=== PATIENT | female | born 1990 | race African-American/Black ===

== ENCOUNTER 2016-05-25 11:12 | Emergency (ER) ==
[2016-05-25 12:16] VITALS: BP 129/73
[2016-05-25 12:55] LABS: MANUAL DIFF NEEDED? NO
[2016-05-25 13:07] LABS: BASO% 0.2 % (0.0-0.8); EOS# 0.01 X1000 (0.0-0.7); EOS% 0.2 % (0.0-10.0); HEMATOCRIT 38.8 % (37.0-47.0); LYMPH# 2.53 X1000 (1.2-3.4); LYMPH% 47.3 % (20.5-51.1); MCHC 33.5 g/dL (33-37); MCV 95.6 FL (81-99); MONO# 0.43 X1000 (0.11-0.59); MPV 9.9 FL (7.4-10.4); NEUT% 44.3 % (42.2-75.2); PLT 256 X1000 (130-400); RBC 4.06 XMIL (4.2-5.4)
[2016-05-25 13:20] LABS: AGAP 12; ALBUMIN 4.3 g/dL (3.5-5.0); ALKALINE PHOSPHATASE 90 U/L (32-104); AMYLASE 42 U/L (20-200); BUN 11 mg/dL (8-22); CALCIUM 9.2 mg/dL (8.8-10.2); CHLORIDE 99 mmol/L (98-107); COSMO 268; GOT 15 U/L (10-30); GPT 13 U/L (10-36); LIPASE 19 U/L (13-60); POTASSIUM 3.6 mmol/L (3.5-5.1); SODIUM 135 mmol/L (136-145); TCO2 24 mmol/L (25-35); TOTAL BILIRUBIN 0.83 mg/dL (0.20-1.00); TOTAL PROTEIN 8.1 g/dL (6.3-8.3)
[2016-05-25 13:24] LABS: URINE MICRO REVIEW NEEDED? NO; URINE SOURCE CLEAN CATCH
[2016-05-25 13:28] LABS: BILIRUBIN URINE NEGATIVE (NEGATIVE); BLOOD URINE NEGATIVE (NEGATIVE); COLOR YELLOW; GLUCOSE URINE NEGATIVE (NEGATIVE); LEUKOCYTES URINE TRACE (NEGATIVE); NITRITE URINE NEGATIVE (NEGATIVE); PROTEIN URINE 30 mg/dL (NEGATIVE); SP GRAVITY URINE 1.029; TURBIDITY URINE CLEAR (CLEAR); UROBILINOGEN URINE 2 mg/dL (NORMAL)
[2016-05-25 13:30] LABS: UR EPITHELIAL CELLS <10 /HPF (<10); URINE BACTERIA 1+ /HPF; URINE CULTURE NEEDED? YES; URINE RBC <10 /HPF (<10)
== END 2016-05-25 17:02 | disposition left against medical advice (07) ==
LOC: ED 11:12
DX: R11.2 Nausea with vomiting, unspecified (principal); R51 Headache; R22.1 Localized swelling, mass and lump, neck
CPT/HCPCS: 36415; 80053; 81001; 82150; 83690; 85025; 87088; 99282

== ENCOUNTER 2016-05-27 11:16 | Emergency (ER) ==
[2016-05-27 11:27] VITALS: BP 116/60
[2016-05-27 11:37] LABS: URINE CULTURE PL NEEDED? NO; URINE SOURCE CLEAN CATCH
[2016-05-27 11:41] LABS: BILIRUBIN URINE NEGATIVE (NEGATIVE); BLOOD URINE NEGATIVE (NEGATIVE); CLARITY SL. CLOUDY (CLEAR); COLOR AMBER; GLUCOSE URINE NEGATIVE (NEGATIVE); LEUKOCYTES URINE 1+ (NEGATIVE); NITRITE URINE NEGATIVE (NEGATIVE); PROTEIN URINE 1+(30 mg/dL) mg/dL (NEGATIVE); UROBILINOGEN URINE 4+(12 mg/dL)
--- NOTE | 2016-05-27 11:58 | PROVIDER DOCUMENTATION ---
HPI-General Adult <Charline Barrow - Last Filed: 05/27/16 14:20> - General Source: patient - History of Present Illness -Gen Adult Nature of Presenting Problems: Reports to er with cc of sorethroat x 4 days with nausea and vomiting x 2 days. Reports left salivary glands swollen. Has had previous right sided salivary gland surgery. Also reports bodyaches. Location of Pain/Injury: reports: generalized Quality of Pain: reports: aching Severity: reports: moderate Onset/Duration: reports: 4 days ago Timing: reports: still present Associated Symptoms: reports: EENT symptoms, muscle aches, nausea, vomiting Similar Symptoms Previously?: No Recently seen or treated by another doctor?: No <Jonh Giron - Last Filed: 05/27/16 14:22> - General Chief Complaint: Nausea/Vomiting Stated Complaint: SORE THROAT/VOMITING Time Seen by Provider: 05/27/16 11:25 Allergies/Adverse Reactions: Patient Allergies Allergy/AdvReac Type Severity Reaction Status Date / Time No Known Allergies Allergy Verified 04/13/16 19:22 Review of Systems - Adult - REVIEW OF SYSTEMS - ADULT Constitutional: denies: chills, fever, fatique Eyes: reports: no symptoms reported Ears, Nose, Mouth & Throat: reports: see HPI, throat pain. denies: ear pain, sinus problem Cardiovascular: reports: no symptoms reported Respiratory: denies: cough, shortness of breath, wheezing Gastrointestinal: reports: nausea, vomiting. denies: abdominal pain, diarrhea Genitourinary: reports: no symptoms reported Musculoskeletal: reports: muscle aches. denies: frequent leg cramps, joint pain , joint swelling Integumentary: reports: no symptoms reported Neurological: reports: no symptoms reported Psychiatric: reports: no symptoms reported Endocrine: reports: no symptoms reported Hematologic/Lymphatic: reports: no symptoms reported Allergic/Immunologic: reports: no symptoms reported All Other Systems: Reviewed and Negative <Jonh Giron - Last Filed: 05/27/16 14:22> Past History - Adult - PAST MEDICAL HISTORY-ADULT Review of Records: reports: Nursing Assessment Review Major Childhood Illnesses: reports: denies history Cardiovascular: reports: denies history Musculoskeletal: reports: neck/back injury Neurological: reports: headaches/migraines Psychiatric: reports: other (panic attacks) - PRIOR SURGERIES/PROCEDURES Surgical/Procedure History: reports: back/neck (neck) - IMMUNIZATION STATUS Childhood Immunizations: See Nurse Assessment Flu Vaccine: See Nurse Assessment - FAMILY HISTORY Family History: reviewed, not pertinent - SOCIAL HISTORY Smoking: cigarettes, less than 1 pack/day Provider spent 3-5 mins advising pt. on dangers of tobacco.: Discussed manners to quit use, and f/u contacts for add'l counseling. Substance Use: none/never <Jonh Giron - Last Filed: 05/27/16 14:22> Physical Exam-General - PHYSICAL EXAM-ADULT Initial Vital Signs Reviewed: Yes - CONSTITUTIONAL General Appearance: appears well, alert, no apparent distress - EYES Eyes: PERRL/EOMI, pink conjunctivae - HEAD, EARS, NOSE, MOUTH & THROAT HENMT: normocephalic/atraumatic, moist mucous membranes, normal ENT inspection, TMs normal, pharyngeal erythema - NECK Neck: full range of motion, lymphadenopathy (left side 1cm raised), other ( healed surgical scar right side neck and throat) - RESPIRATORY Respiratory: chest non-tender, lungs clear, normal breath sounds - CARDIOVASCULAR Cardiovascular: normal peripheral pulses, regular rate, rhythm, no edema - GASTROINTESTINAL (ABDOMEN) Abdominal Exam: normal bowel sounds, non tender, soft - LYMPHATIC Lymphatic: no adenopathy - MUSCULOSKELETAL Back Exam: normal inspection, no CVA tenderness, no vertebral tenderness Extremity: normal range of motion, non-tender, normal gait - SKIN Integumentary: normal color, normal turgor, warm/dry - NEUROLOGIC Neurologic: grossly normal, no motor/sensory deficits - PSYCHIATRIC Psych/Mental Status: normal mood/affect, normal thought content, normal thought process, oriented x 3 <Jonh Giorn - Last Filed: 05/27/16 14:22> Progress - PLAN OF CARE/RESULTS Progress/Plan/Lab Results: Orders Category Date Time Status TEST-URINE [PREG] Stat Lab 05/27/16 11:[address] W/POSS RFLX CULT [URINALYSIS] Stat Lab 05/27/16 11:31 Results Vital Signs - 24 hr 05/27/16 11:25 Temperature 97.2 F L Pulse Rate 57 L Respiratory 18 Rate Blood Pressure 116/60 O2 Sat by Pulse 97 Oximetry Laboratory Tests 05/27/16 05/27/16 11:31 11:31 Urine Source CLEAN CATCH Urine Color RAJIV Urine Clarity SL. CLOUDY A Urine pH 6.0 Ur Specific [place] 1.020 Urine Protein 1+(30 mg/dL) A Urine Ketones 1+(Small) A Urine Blood NEGATIVE Urine Nitrite NEGATIVE Urine Bilirubin NEGATIVE Urine Urobilinogen 4+(12 mg/dL) Urine Microscopic RBC <10 Urine WBC 1+ A Urine Microscopic WBC 10-20 A Ur Epithelial Cells <10 Urine Glucose NEGATIVE Urine Test NEGATIVE Laboratory Tests 05/27/16 05/27/16 05/27/16 11:31 11:31 13:35 Urine Source CLEAN CATCH Urine Color RAJIV Urine Clarity SL. CLOUDY A Urine pH 6.0 Ur Specific [place] 1.020 Urine Protein 1+(30 mg/dL) A Urine Ketones 1+(Small) A Urine Blood NEGATIVE Urine Nitrite NEGATIVE Urine Bilirubin NEGATIVE Urine Urobilinogen 4+(12 mg/dL) Urine Microscopic RBC <10 Urine WBC 1+ A Urine Microscopic WBC 10-20 A Ur Epithelial Cells <10 Urine Glucose NEGATIVE Urine Test NEGATIVE Influenza A (Rapid) Influenza B (Rapid) Group A Strep Rapid NEGATIVE 05/27/16 13:35 Urine Source Urine Color Urine Clarity Urine pH Ur Specific [place] Urine Protein Urine Ketones Urine Blood Urine Nitrite Urine Bilirubin Urine Urobilinogen Urine Microscopic RBC Urine WBC Urine Microscopic WBC Ur Epithelial Cells Urine Glucose Urine Test Influenza A (Rapid) NEGATIVE Influenza B (Rapid) NEGATIVE Group A Strep Rapid <MackJonh - Last Filed: 05/27/16 14:22> Departure - Departure Time of Disposition Order: 14:20 <Charline Barrow - Last Filed: 05/27/16 14:20> - Departure Time of Disposition Order: 12:10 Certified Medical Emergency: Emergent <MackJonh - Last Filed: 05/27/16 14:22> - Departure DIAGNOSIS: Influenza-like illness UTI (urinary tract infection) Qualifiers: Urinary tract infection type: site unspecified Hematuria presence: without hematuria Qualified Code(s): N39.0 - Urinary tract infection, site not specified Pharyngitis Qualifiers: Pharyngitis/tonsillitis etiology: unspecified etiology Qualified Code(s): J02.9 - Acute pharyngitis, unspecified Disposition: HOME 01 Condition: Stable Additional Instructions: ED Follow Up Instructions: You have been treated by a care provider in the Emergency Department. These instructions are being provided to you so you can have an understanding of how to care for yourself upon discharge. Upon discharge from the Emergency Department, you are responsible for making arrangements for follow-up care by a physician of your choice. Take all prescribed medications as directed. Return to the Emergency Department immediately for any new or worsening symptoms. You may call the Physician Referral phone number at [phone] to obtain a list of Physicians who are taking new patients. Prescriptions: Cephalexin [Keflex] 500 mg PO BID #21 capsule Promethazine [Phenergan] 25 mg PO Q6H PRN PRN #20 tablet PRN Reason: Nausea And Vomiting Referrals: Lyle Matthews MD [STAFF PHYSICIAN] - None,PCP [Primary Care Provider] - Forms: Return to School/Parent Work Instructions: Urinary Tract Infection, [id number], Cephalexin tablets or capsules, Pharyngitis, [id number] Attestation - Scribe Verification/Attestation Scribe:: Jonh Giron Acting as Scribe for:: Charline Barrow Scribe documention review:: This chart was documented by a scribe and accurately reflects the service the provider performed and the decisions made by the provider. <Jonh Giron - Last Filed: 05/27/16 14:22> Physician Attestation
[2016-05-27 11:59] LABS: URINE EPITHELIAL CELLS <10 /HPF (<10); URINE RBC <10 /HPF (<10)
[2016-05-27] MEDS ORDERED: DECADRON IM ONE (14:24)
== END 2016-05-27 14:57 | disposition home or self-care (01) ==
LOC: P.ED 11:16
DX: N39.0 Urinary tract infection, site not specified (principal); J11.1 Influenza due to unidentified influenza virus with other respiratory manifestations; J02.9 Acute pharyngitis, unspecified; R11.2 Nausea with vomiting, unspecified; M79.1 Myalgia; R59.0 Localized enlarged lymph nodes; F17.210 Nicotine dependence, cigarettes, uncomplicated; Z71.6 Tobacco abuse counseling
CPT/HCPCS: 81001; 81025; 87081; 87430; 87804; 96372; J1100

== ENCOUNTER 2016-07-16 15:48 | Emergency (ER) | payer OTHER ==
[2016-07-16] MEDS ORDERED: NS 1,000 ML IV ONE (16:22)
--- NOTE | 2016-07-16 16:31 | PROVIDER DOCUMENTATION ---
HPI-Abdominal Pain/GI Problem - General Chief Complaint: Abdominal Pain Stated Complaint: HEADACHE/VOMITING/ABD PAIN Time Seen by Provider: 07/16/16 16:05 Source: patient Allergies/Adverse Reactions: Patient Allergies Allergy/AdvReac Type Severity Reaction Status Date / Time No Known Allergies Allergy Verified 07/16/16 16:27 Home Medications: Home Medication List Medication Instructions Recorded Confirmed Last Taken Type Doxycycline 100 mg PO BID #13 capsule 07/16/16 Unknown Rx Metronidazole [Flagyl] 500 mg PO BID #13 tablet 07/16/16 Unknown Rx - History of Present Illness-ABD Nature of Presenting Problems: 26 year old AAF presents with 2 complaints. 1. pt reports abdominal pain for 3-4 days, mid lower quadrant, constant, dull in nature, exacerbated with movement, ambulation. associated urinary frequency and nausea without vomiting. pt reports last BM this morning, normal. denies vaginal dc, pain with intercourse. last intercourse, 6 days ago, unprotected. pt reports her menstrual periods are irregular since the depo injection worse off several months ago. pt reports she is currently spotting. 2. pt reports a headache, onset this afternoon when she got off work. pt reports she has headaches on a daily basis, worse today. pain is always in the bilateral temples, non-radiating, dull, constant with associated nausea, without vomiting, positive for photophobia. pt reports she does not have much of an appetite in the last 4 days, denies fever, diarrhea. Abdominal Pain Onset Location: reports: suprapubic Pain Radiation: reports: no radiation Quality of Pain: reports: aching, dull Severity in ED: reports: mild Onset/Duration: reports: 3 days ago, 4 days ago Timing: reports: still present, constant, getting worse. denies: improving Activities at Onset: reports: none. denies: light activity, moderate activity, vigorous activity, recent emotional stress, recent physical stress, recent trauma history, possible bad food, cold exposure, eating, out of country travel , rest, sleep, sexual activity, other Modifying Factors: improves with: nothing, analgesics (pt reports taking tylenol without relief.) Associated Symptoms: reports: genitourinary problems (urinary frequency), loss of appetite, nausea. denies: back/neck pain, constipation, diarrhea, fever/ chills, vomiting, weakness, trouble walking Last BM: this morning Dark Stools Present?: reports: none noticed. denies: maroon, black, tarry, bright red blood Rectal Bleeding: reports: none. denies: bleeding without stool, bright red blood on paper, blood mixed with stool, blood streaks on stool, bloody diarrhea # of Diarrhea Episodes: 0 Rectal Pain: reports: none # of Vomiting Episodes: 0 Emesis Description: reports: none Bruising or Bleeding Gums?: No Similar Symptoms Previously?: No Recently seen or treated by another doctor?: No Review of Systems - Adult - REVIEW OF SYSTEMS - ADULT Constitutional: reports: no symptoms reported. denies: chills, fever, fatique Eyes: reports: no symptoms reported. denies: discharge, blurred vision, double vision, redness Ears, Nose, Mouth & Throat: reports: no symptoms reported. denies: ear discharge, ear pain, nose pain, loose teeth, throat pain, throat swelling Cardiovascular: reports: no symptoms reported. denies: chest pain, palpitations , syncope Respiratory: reports: no symptoms reported. denies: chronic cough, cough, shortness of breath, wheezing Gastrointestinal: reports: see HPI, abdominal pain, nausea, poor appetite. denies: hematemesis, constipation, diarrhea, difficulty swallowing, frequent heartburn, rectal bleeding, vomiting Genitourinary: reports: see HPI, frequency. denies: dysuria, discharge, flank pain, frequent UTI's, hematuria, hesitency, incontinence, urinary retention, urgency Musculoskeletal: reports: no symptoms reported. denies: bone pain, joint pain, joint swelling, neck pain Integumentary: reports: no symptoms reported. denies: hives, itching, rash, skin sores/ulcer Neurological: reports: see HPI, headache/migraines, other (photophobia). denies : ataxia, dizziness/vertigo, loss of balance, numbness, paresthesia, seizure, slurred speech, syncope, tremors Psychiatric: reports: see HPI, anxiety. denies: alcohol/drug dependence Endocrine: reports: no symptoms reported. denies: goiter, increased thirst, polyuria Hematologic/Lymphatic: reports: no symptoms reported Allergic/Immunologic: reports: no symptoms reported All Other Systems: Reviewed and Negative Past History - Adult - PAST MEDICAL HISTORY-ADULT Review of Records: reports: Old Records Reviewed, Nursing Assessment Review, Medications Reviewed, Social history reviewed & non-contributory. Major Childhood Illnesses: reports: denies history Cardiovascular: reports: denies history Respiratory: reports: denies history Gastrointestinal: reports: denies history Obstetrical/Gynecological: reports: denies history Genitourinary: reports: denies history Musculoskeletal: reports: neck/back injury Neurological: reports: headaches/migraines Psychiatric: reports: anxiety, other (panic attacks) Endocrine/Immune: reports: denies history Other Conditions: reports: denies history - PRIOR SURGERIES/PROCEDURES Surgical/Procedure History: reports: back/neck (neck) - IMMUNIZATION STATUS Childhood Immunizations: See Nurse Assessment Flu Vaccine: See Nurse Assessment - FAMILY HISTORY Family History: reviewed, not pertinent - SOCIAL HISTORY Smoking: cigarettes Provider spent 3-5 mins advising pt. on dangers of tobacco.: Discussed manners to quit use, and f/u contacts for add'l counseling. Substance Use: none/never Alcohol Use Frequency: never Physical Exam-General - PHYSICAL EXAM-ADULT Initial Vital Signs Reviewed: Yes - CONSTITUTIONAL General Appearance: appears well, alert, no apparent distress. negative: mild distress, moderate distress, severe distress, anxious, lethargic, slow to respond, obtunded, combative - EYES Eyes: PERRL/EOMI, pink conjunctivae. negative: conjuctival exudate, pale conjunctivae, photophobia, sclera injected, scleral icterus, subconjunctival hemorrhage - HEAD, EARS, NOSE, MOUTH & THROAT HENMT: normocephalic/atraumatic, moist mucous membranes, normal ENT inspection - NECK Neck: non-tender, full range of motion, supple, normal inspection. negative: C- spine tenderness, limited range of motion, tender lateral, tender midline - RESPIRATORY Respiratory: chest non-tender, lungs clear, normal breath sounds, no pleuratic chest pain, no respiratory distress, no accessory muscle use. negative: respiratory distress, decreased breath sounds, accessory muscle use, crackles, rales, rhonchi, stridor, wheezing - CARDIOVASCULAR Cardiovascular: normal peripheral pulses, regular rate, rhythm, no edema, no gallop, no JVD, no murmur. negative: diastolic murmur, systolic murmur - CHEST (BREASTS) Chest/Breast: deferred - GASTROINTESTINAL (ABDOMEN) Abdominal Exam: normal bowel sounds, soft, no organomegaly, no pulsatile mass, tenderness (suprapubic). negative: non tender, abnormal bowel sounds, distended , guarding, rigid, rebound, hernia, mass, hepatomegaly, spleenomegaly, McBurney' s point tenderness, Contreras's sign, obturator sign, psoas, Rovsing's sign - GENITOURINARY Female Genitalia/Pelvic Exam: external exam normal, speculum exam normal, no masses, blood (blood in vaginal vault, no active bleeding from cervix), tender w / cervical motion. negative: bimanual exam normal, no cerv. motion tender, active bleeding, cervicitis, discharge, herpes-like ulcerations, lesions, mass, tender adnexa, tender uterus, ulcers Rectal Exam: deferred Hemoccult Exam: deferred - LYMPHATIC Lymphatic: no adenopathy - MUSCULOSKELETAL Back Exam: normal inspection, no CVA tenderness, no vertebral tenderness. negative: CVA tenderness, decreased range of motion, swelling, vertebral tenderness Extremity: normal range of motion, non-tender, normal gait, normal inspection, no pedal edema, no calf tenderness, normal capillary refill. negative: deformity, erythema, inflammation, joint effusion Peripheral Pulses: radial (R): 3+, radial (L): 3+, dorsalis-pedis (R): 3+, dorsalis-pedis (L): 3+ - SKIN Integumentary: normal color, normal turgor, warm/dry. negative: mottled, pallor , petechiae, swelling, tenderness - NEUROLOGIC Neurologic: dairy manager II-XII nml as tested, grossly normal, no motor/sensory deficits , negative romberg's sign. negative: abnormal cerebellar tests, abnormal dairy manager II -XII, abnormal gait, aphasia, EOM palsy, facial droop, focal weakness, motor weakness, sensory deficit, positive romberg's sign - PSYCHIATRIC Psych/Mental Status: normal mood/affect, normal thought content, normal thought process, oriented x 3. negative: anxious, disheveled, paranoid, tearful Progress - PLAN OF CARE/RESULTS Progress/Plan/Lab Results: Laboratory Tests 07/16/16 07/16/16 07/16/16 16:19 16:19 16:25 WBC 6.78 RBC 3.83 L Hgb 12.3 Hct 36.8 L MCV 96.1 MCH 32.1 H MCHC 33.4 RDW Std Deviation 12.6 Plt Count 254 MPV 9.5 Immature Gran % (Auto) 0.0 Neut % (Auto) 43.3 Lymph % (Auto) 49.1 [place] % (Auto) 6.6 Eos % (Auto) 0.7 Baso % (Auto) 0.3 Immature Gran # (Auto) 0.00 Neut # (Auto) 2.93 Lymph # (Auto) 3.33 [place] # (Auto) 0.45 Eos # (Auto) 0.05 Baso # (Auto) 0.02 Sodium 140 Potassium 3.5 Chloride 102 Carbon Dioxide 27 Anion Gap 11 BUN 7 L Creatinine 0.7 Estimated GFR/1.73 m2 > 60 BUN/Creatinine Ratio 10 Glucose 71 Calculated Osmolality 276 Calcium 9.0 Total Bilirubin 0.57 AST 18 ALT 14 Alkaline Phosphatase 83 Total Protein 7.1 Albumin 3.7 Globulin 3.4 Albumin/Globulin Ratio 1.1 Amylase 56 Lipase 23 Urine Source CLEAN CATCH Urine Color YELLOW Urine Turbidity CLEAR Urine pH 7.5 Ur Specific [place] 1.015 Urine Protein NEGATIVE Ur Glucose (Stick) NEGATIVE Ur Ketones (Stick) NEGATIVE Urine Blood MODERATE A Urine Nitrite NEGATIVE Urine Bilirubin NEGATIVE Urobilinogen Dipstick NORMAL Urine Leukocytes NEGATIVE Urine WBC (Auto) <10 Urine RBC (Auto) <10 U Epithel Cells (Auto) <10 Urine Bacteria (Auto) NEGATIVE Orders Category Date Time Status ED: Urine Bedside ORDERED Care 07/16/16 16:22 Active Pelvic set up DIRECTED Care 07/16/16 17:01 Active Saline Loc DIRECTED Care 07/16/16 16:22 Active NPO Diet 07/16/16 16:22 Active HEAD W/O CONTRAST [CT] Stat Exams 07/16/16 16:23 Completed AMYLASE [CHEM] Stat Lab 07/16/16 16:19 Completed CBC WITH ELECTRONIC DIFF [HEME] Stat Lab 07/16/16 16:19 Completed CHLAMYDIA AND GC BY PCR URINE [POPE] Stat Lab 07/16/16 16:19 Received COMPREHENSIVE METABOLIC PANEL [CHEM] Stat Lab 07/16/16 16:19 Completed GRAM STAIN [DIREX] Stat Lab 07/16/16 17:47 Completed LIPASE [CHEM] Stat Lab 07/16/16 16:19 Completed URINALYSIS W/POSS RFLX CULT [URINALYSIS] Stat Lab 07/16/16 16:25 Completed WET PREP [RM] Stat Lab 07/16/16 17:47 Completed 0.9% Sodium Chloride Inj [Ns] 1,000 ml Med 07/16/16 16:22 Discontinued IV 999 mls/hr Morphine Med 07/16/16 17:02 Discontinued 4 mg IV NOW ONE Ondansetron [Zofran] Med 07/16/16 17:02 Discontinued 4 mg IV NOW ONE Vital Signs - 24 hr 07/16/16 15:50 Temperature 97.9 F Pulse Rate 67 Respiratory 18 Rate Blood Pressure 139/68 O2 Sat by Pulse 100 Oximetry Reviewed case with Dr. Ludwig, agrees with plan of care and treatment. - REASSESSMENT Reassessment #1 Time Reassessed: 18:40 Status: improving (pt reports headache and abdominal pain resolved.) - CT/MRI 1 CT Study: Head Impression: Normal (per Dr. Baez) Departure - Departure Time of Disposition Order: 18:40 DIAGNOSIS: PID (acute pelvic inflammatory disease) Headache Qualifiers: Headache type: unspecified Headache chronicity pattern: chronic headache Intractability: not intractable Qualified Code(s): R51 - Headache Abdominal pain Qualifiers: Abdominal location: lower abdomen, unspecified Qualified Code(s): R10.30 - Lower abdominal pain, unspecified Disposition: HOME 01 Certified Medical Emergency: Emergent Condition: Stable Additional Instructions: Follow up with Dr. Valentine. ED Follow Up Instructions: You have been treated by a care provider in the Emergency Department. These instructions are being provided to you so you can have an understanding of how to care for yourself upon discharge. Upon discharge from the Emergency Department, you are responsible for making arrangements for follow-up care by a physician of your choice. Take all prescribed medications as directed. Return to the Emergency Department immediately for any new or worsening symptoms. You may call the Physician Referral phone number at [phone] to obtain a list of Physicians who are taking new patients. Prescriptions: Doxycycline 100 mg PO BID #13 capsule Metronidazole [Flagyl] 500 mg PO BID #13 tablet Referrals: None,PCP [Primary Care Provider] - Leah Valentine MD [STAFF PHYSICIAN] - Instructions: Abdominal Pain, Women, Migraine Headache, [id number], Pelvic Inflammatory Disease, [id number] Attestation - Physician/ LUIS Attestation Patient care was provided by Advanced Practice Provider:: Yes Advanced Practice Provider:: Bassam Giles Advanced Practice Provider documentation review:: The Mid-level provider documentation, treatment plan and medical decision making was reviewed by the physician who agrees with all treatment and medical decision making by the MLP. HPI-Headache - General Chief Complaint: Abdominal Pain Stated Complaint: HEADACHE/VOMITING/ABD PAIN Time Seen by Provider: 07/16/16 16:05 Source: patient Allergies/Adverse Reactions: Patient Allergies Allergy/AdvReac Type Severity Reaction Status Date / Time No Known Allergies Allergy Verified 07/16/16 16:27 Home Medications: Home Medication List Medication Instructions Recorded Confirmed Last Taken Type Doxycycline 100 mg PO BID #13 capsule 07/16/16 Unknown Rx Metronidazole [Flagyl] 500 mg PO BID #13 tablet 07/16/16 Unknown Rx - History of Present Illness-Headache Headache Location: reports: temporal (bilateral) Quality of Pain: reports: none, aching, dull Severity: reports: mild Onset/Duration: reports: this afternoon Timing: reports: still present, constant, getting worse Headache Context: reports: nothing. denies: head injury, meningitis exposure, while turning/twisting head Headache History: reports: frequent headaches, history of migraines. denies: chronic headaches, occasional headaches, head trauma < 24 hrs ago, head trauma > 24 hrs ago Any recent trauma/injury?: reports: none Headache severity at the maximum: moderate Preceding Symptoms: denies: visual disturbances, scotoma, aura(s), typical of previous aura(s) Headache Exacerbated by:: reports: light. denies: noise, movement, position Modifying Factors: improves with: nothing Associated Symptoms: denies: short of breath, decreased ability to walk or stand , fainting, dizziness, neck/back pain, fatigue, fever/chills, loss of consciousness, muscle spasms, ringing in ears, seizures, sleepy, slurred speech , tingling in legs/feet, trouble walking, vomiting, vision changes, weakness Similar Symptoms Previously?: Yes Recently seen or treated by another doctor?: Yes
[2016-07-16 16:35] LABS: URINE CULTURE NEEDED? NO; URINE MICRO REVIEW NEEDED? NO; URINE SOURCE CLEAN CATCH
[2016-07-16 16:35] LABS: MANUAL DIFF NEEDED? NO
[2016-07-16 16:41] LABS: BASO% 0.3 % (0.0-0.8); EOS# 0.05 X1000 (0.0-0.7); EOS% 0.7 % (0.0-10.0); HEMATOCRIT 36.8 % (37.0-47.0); HEMOGLOBIN 12.3 g/dL (12.0-16.0); LYMPH# 3.33 X1000 (1.2-3.4); LYMPH% 49.1 % (20.5-51.1); MCH 32.1 PG (27-31); MCHC 33.4 g/dL (33-37); MCV 96.1 FL (81-99); MONO# 0.45 X1000 (0.11-0.59); MONO% 6.6 % (1.7-9.3); MPV 9.5 FL (7.4-10.4); NEUT% 43.3 % (42.2-75.2); PLT 254 X1000 (130-400); RBC 3.83 XMIL (4.2-5.4)
[2016-07-16 16:41] LABS: BILIRUBIN URINE NEGATIVE (NEGATIVE); BLOOD URINE MODERATE (NEGATIVE); COLOR YELLOW; GLUCOSE URINE NEGATIVE (NEGATIVE); LEUKOCYTES URINE NEGATIVE (NEGATIVE); NITRITE URINE NEGATIVE (NEGATIVE); PH URINE 7.5; PROTEIN URINE NEGATIVE (NEGATIVE); SP GRAVITY URINE 1.015; TURBIDITY URINE CLEAR (CLEAR); UROBILINOGEN URINE NORMAL (NORMAL)
[2016-07-16 16:42] LABS: UR EPITHELIAL CELLS <10 /HPF (<10); URINE BACTERIA NEGATIVE /HPF; URINE RBC <10 /HPF (<10); URINE WBC <10 /HPF (<10)
[2016-07-16 16:59] LABS: AGAP 11; ALBUMIN 3.7 g/dL (3.5-5.0); ALKALINE PHOSPHATASE 83 U/L (32-104); AMYLASE 56 U/L (20-200); BUN 7 mg/dL (8-22); CHLORIDE 102 mmol/L (98-107); COSMO 276; GOT 18 U/L (10-30); GPT 14 U/L (10-36); LIPASE 23 U/L (13-60); POTASSIUM 3.5 mmol/L (3.5-5.1); SODIUM 140 mmol/L (136-145); TCO2 27 mmol/L (25-35); TOTAL BILIRUBIN 0.57 mg/dL (0.20-1.00); TOTAL PROTEIN 7.1 g/dL (6.3-8.3)
[2016-07-16] MEDS ORDERED: MORPHINE IV ONE (17:02)
[2016-07-16] MEDS ORDERED: ZOFRAN IV ONE (17:02)
--- NOTE | 2016-07-16 17:44 | Diag Imaging Result Document ---
PROCEDURE NAME: HEAD W/O CONTRAST - 07/16/2016 CT HEAD WITHOUT CONTRAST: FINDINGS: A dose reduction protocol was used. No comparison exam. There is no evidence of intracranial hemorrhage, mass effect, midline shift, or hydrocephalus. There is no evidence of infarct, although acute infarcts may not be immediately visible. Visualized portions of paranasal sinuses appear clear. 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 IMPRESSION: 1. No visible intracranial abnormality. 2. No hemorrhage or mass effect.
[2016-07-16] MEDS ORDERED: ROCEPHIN IV ONE (18:43)
[2016-07-16] MEDS ORDERED: NS IV ONE (18:43)
[2016-07-16] MEDS ORDERED: DOXYCYCLINE PO ONE (18:44)
[2016-07-16] MEDS ORDERED: FLAGYL PO ONE (18:44)
[2016-07-16 19:46] VITALS: BP 110/78
== END 2016-07-16 19:46 | disposition home or self-care (01) ==
LOC: ED 15:48
DX: N73.9 Female pelvic inflammatory disease, unspecified (principal); R51 Headache; R10.30 Lower abdominal pain, unspecified; R35.0 Frequency of micturition; H53.149 Visual discomfort, unspecified; R10.819 Abdominal tenderness, unspecified site; F17.210 Nicotine dependence, cigarettes, uncomplicated; Z71.6 Tobacco abuse counseling
CPT/HCPCS: 70450; 80053; 81001; 82150; 83690; 85025; 87205; 87210; 87491; 87591; J0696; J2270; J2405; J7030

== ENCOUNTER 2019-05-04 12:03 | Inpatient (IN) ==
[2019-05-04] MEDS ORDERED: NS 1,000 ML IV ONE (12:10)
--- NOTE | 2019-05-04 12:25 | PROVIDER DOCUMENTATION ---
HPI-Syncope/Dizziness - General Chief Complaint: Dizziness Stated Complaint: WEAK, HEART RACING Time Seen by Provider: 05/04/19 12:10 Source: patient Allergies/Adverse Reactions: Patient Allergies Allergy/AdvReac Type Severity Reaction Status Date / Time No Known Allergies Allergy Verified 05/04/19 12:24 Home Medications: Home Medication List Medication Instructions Recorded Confirmed Last Taken Type NK [No Home Medications] 05/04/19 05/04/19 Unknown History - History of Present Illness-Syncope/Dizzy Nature of Presenting Problem: 29 YOF PRESENTS WITH C/O FEELING WEAK, DIZZY AND LIKE HER HEART STOPPED PUMPING. 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 SHE PRESENTS WITH THE SAME COMPLAINTS TO THE ER. SHE DENIES CP, SOB, N/V/D, ABDOMINAL PAIN. REPORTS SHE HAS BEEN ON HER PERIOD FOR 2 MONTHS STRAIGHT AND THE SHE ALSO GAVE PLASMA THIS MORNING BUT HAS NOT PREVIOUSLY HAD COMPLICATIONS AFTER DONATION. SHE DENIES FEVER, CHILLS. Prior Episodes: reports: no prior history Onset/Duration: reports: just prior to arrival Timing: reports: improving Position/Activity at time of episode: reports: standing, activity Context: reports: felt faint, almost passed out. denies: lost consciousness, became unresponsive, collapsed, confused after event, incontinent of urine, incontinent of stool, lost pulse Loss of Consciousness: no loss of consciousness Location of injury. (If syncope resulted in an injury.): reports: none Current Symptoms: reports: weakness, lightheaded, dizzy, lightheaded Recently Seen Here or By Another Healthcare Provider: No - Dizziness Severity in ED: reports: moderate Any recent trauma/injury?: reports: none Modifying Factors: improves with: lying down Patient usually:: reports: walks without assistance Review of Systems - Adult - REVIEW OF SYSTEMS - ADULT Constitutional: reports: no symptoms reported. denies: see HPI, chills, fever, fatique, night sweats, weight gain, weight loss, other Eyes: reports: no symptoms reported. denies: see HPI, discharge, dry eyes, decreased vision, blurred vision, double vision, eye pain, redness, other Ears, Nose, Mouth & Throat: reports: no symptoms reported. denies: see HPI, ear discharge, ear pain, hearing loss, tinnitus, epistaxis, sinus problem, nose pain, loose teeth, mouth/dental pain, mouth swelling, hoarseness, throat pain, throat swelling, other Cardiovascular: reports: palpitations. denies: no symptoms reported, see HPI, chest pain, edema, heart murmur, irregular heart rate, orthopnea, poor circulation, PND, syncope, other Respiratory: reports: no symptoms reported. denies: see HPI, chronic cough, cough, dyspnea on exertion, excessive sputum production, hemoptysis, pleurisy, shortness of breath, wheezing, other Gastrointestinal: reports: no symptoms reported. denies: see HPI, abdominal pain, hematemesis, constipation, diarrhea, difficulty swallowing, frequent heartburn, nausea, poor appetite, rectal bleeding, vomiting, other Genitourinary: reports: see HPI. denies: no symptoms reported, dysuria, discharge, frequency, flank pain, frequent UTI's, hematuria, hesitency, incontinence, urinary retention, urgency, other Musculoskeletal: reports: no symptoms reported. denies: see HPI, bone pain, back pain, frequent leg cramps, joint pain, joint swelling, muscle aches, muscle weakness, neck pain, other Integumentary: reports: no symptoms reported. denies: see HPI, hives, hair loss, itching, mole changes, nail changes, rash, skin sores/ulcer, skin thickening, other Neurological: reports: see HPI, dizziness/vertigo, numbness (GENRALIZED PER PATIENT). denies: no symptoms reported, ataxia, headache/migraines, loss of balance, paresthesia, seizure, slurred speech, syncope, tremors, other Psychiatric: reports: no symptoms reported. denies: see HPI, anxiety, anti-depressant use, alcohol/drug dependence, depression, emotional problems, insomnia, panic attacks, suicidal thoughts, other Endocrine: reports: no symptoms reported. denies: see HPI, change in skin pigment, excessive sweating, goiter, cold intolerance, heat intolerance, increased hunger, increased thirst, polyuria, other Hematologic/Lymphatic: reports: no symptoms reported. denies: see HPI, blood clots, easy bruising, low blood count, lymphedema, prolonged bleeding, swollen lymph nodes, transfusions, other Allergic/Immunologic: reports: no symptoms reported. denies: see HPI, allergic reactions, allergic rhinitis, asthma, eczema, food allergy, frequent infections, hay fever, hives, positive PPD, urticaria, other Past History - Adult - PAST MEDICAL HISTORY-ADULT Review of Records: reports: Nursing Assessment Review, Social history reviewed & non-contributory. Major Childhood Illnesses: reports: denies history Cardiovascular: reports: denies history Respiratory: reports: denies history Gastrointestinal: reports: denies history Obstetrical/Gynecological: reports: denies history Genitourinary: reports: denies history Musculoskeletal: reports: neck/back injury Neurological: reports: headaches/migraines Psychiatric: reports: anxiety, other (panic attacks) Endocrine/Immune: reports: denies history Other Conditions: reports: denies history - PRIOR SURGERIES/PROCEDURES Surgical/Procedure History: reports: back/neck (neck) - IMMUNIZATION STATUS Childhood Immunizations: See Nurse Assessment Flu Vaccine: See Nurse Assessment - FAMILY HISTORY Family History: reviewed, not pertinent Physical Exam-General - PHYSICAL EXAM-ADULT Initial Vital Signs Reviewed: Yes - CONSTITUTIONAL General Appearance: alert, no apparent distress - EYES Eyes: PERRL/EOMI, pink conjunctivae - HEAD, EARS, NOSE, MOUTH & THROAT HENMT: normocephalic/atraumatic, normal ENT inspection - NECK Neck: non-tender, full range of motion, supple - RESPIRATORY Respiratory: chest non-tender, lungs clear, normal breath sounds, no pleuratic chest pain, no respiratory distress, no accessory muscle use - CARDIOVASCULAR Cardiovascular: normal peripheral pulses, regular rate, rhythm, no edema, no gallop, no JVD, no murmur - GASTROINTESTINAL (ABDOMEN) Abdominal Exam: normal bowel sounds, non tender, soft - LYMPHATIC Lymphatic: no adenopathy - MUSCULOSKELETAL Back Exam: normal inspection, no CVA tenderness, no vertebral tenderness Extremity: normal range of motion, non-tender, normal inspection - SKIN Integumentary: normal color, normal turgor, warm/dry - NEUROLOGIC Neurologic: grossly normal. negative: facial droop, focal weakness, motor weakness - PSYCHIATRIC Psych/Mental Status: normal mood/affect, oriented x 3 Progress - PLAN OF CARE/RESULTS Progress/Plan/Lab Results: Vital Signs - 8 hr 05/04/19 12:06 05/04/19 13:52 Temperature 96.3 F L Pulse Rate 90 Pulse Rate [Sitting] 58 L Pulse Rate [Standing] 78 Pulse Rate [Supine] 59 L Respiratory Rate 18 Blood Pressure 82/63 Blood Pressure [Sitting] 111/64 Blood Pressure [Standing] 111/70 Blood Pressure [Supine] 114/51 O2 Sat by Pulse Oximetry 96 Bedside Urine ED: Urine Bedside Start: 05/04/19 12:18 Freq: ORDERED Status: Active Protocol: Activity Type Activity Date Activity User E-Sign Co-Sign Detail Recorded Client Recorded Date Recorded By Document 05/04/19 13:19 [id number] 05/04/19 13:20 [id number] 05/04/19 13:19 Point of Care [Bedside Point of Care] -Lot # [id number] - Results Negative -Control Line Visible? Yes Laboratory Results - last 24 hr 05/04/19 05/04/19 05/04/19 12:13 12:19 12:19 WBC 8.42 RBC 4.51 Hgb 13.6 Hct 41.9 MCV 92.9 MCH 30.2 MCHC 32.5 L RDW Std Deviation 13.8 Plt Count 285 MPV 9.4 Immature Gran % (Auto) 0.0 Neut % (Auto) 43.9 Lymph % (Auto) 49.3 Swisher % (Auto) 6.2 Eos % (Auto) 0.4 Baso % (Auto) 0.2 Immature Gran # (Auto) 0.00 Neut # (Auto) 3.70 Lymph # (Auto) 4.15 H Swisher # (Auto) 0.52 Eos # (Auto) 0.03 Baso # (Auto) 0.02 Sodium 141 Potassium 3.8 Chloride 107 Carbon Dioxide 24 L Anion Gap 10 BUN 7 L Creatinine 0.7 Estimated GFR/1.73 m2 > 60 BUN/Creatinine Ratio 10 Glucose 96 Calculated Osmolality 279 Calcium 8.4 L Total Bilirubin 0.50 AST 13 ALT 9 L Alkaline Phosphatase 70 Troponin T Total Protein 5.9 L Albumin 3.6 Globulin 2.0 Albumin/Globulin Ratio 2.0 TSH 0.54 Free T4 1.56 Urine Source Urine Color Urine Turbidity Urine pH Ur Specific [place] Urine Protein Ur Glucose (Stick) Ur Ketones (Stick) Urine Blood Urine Nitrite Urine Bilirubin Urobilinogen Dipstick Urine Leukocytes Urine WBC (Auto) Urine RBC (Auto) U Epithel Cells (Auto) Urine Bacteria (Auto) Urine Opiates Screen Ur Oxycodone Screen Urine Methadone Screen U Propoxyphene Qual Ur Barbituates Screen Ur Tricyclics Screen Ur Phencyclidine Scrn Ur Amphetamines Screen U Methamphetamines Scrn U Benzodiazepines Scrn Urine Cocaine Screen U Cannabinoids Screen 05/04/19 05/04/19 05/04/19 12:19 13:11 13:11 WBC RBC Hgb Hct MCV MCH MCHC RDW Std Deviation Plt Count MPV Immature Gran % (Auto) Neut % (Auto) Lymph % (Auto) [place] % (Auto) Eos % (Auto) Baso % (Auto) Immature Gran # (Auto) Neut # (Auto) Lymph # (Auto) Swisher # (Auto) Eos # (Auto) Baso # (Auto) Sodium Potassium Chloride Carbon Dioxide Anion Gap BUN Creatinine Estimated GFR/1.73 m2 BUN/Creatinine Ratio Glucose Calculated Osmolality Calcium Total Bilirubin AST ALT Alkaline Phosphatase Troponin T < 0.010 Total Protein Albumin Globulin Albumin/Globulin Ratio TSH Free T4 Urine Source CLEAN CATCH Urine Color YELLOW Urine Turbidity CLEAR Urine pH 6.0 Ur Specific [place] 1.027 Urine Protein 30 A Ur Glucose (Stick) NEGATIVE Ur Ketones (Stick) TRACE A Urine Blood MODERATE A Urine Nitrite NEGATIVE Urine Bilirubin NEGATIVE Urobilinogen Dipstick 2 A Urine Leukocytes TRACE A Urine WBC (Auto) 10-20 A Urine RBC (Auto) <10 U Epithel Cells (Auto) <10 Urine Bacteria (Auto) NEGATIVE Urine Opiates Screen NONE DETECTED Ur Oxycodone Screen NONE DETECTED Urine Methadone Screen NONE DETECTED U Propoxyphene Qual NONE DETECTED Ur Barbituates Screen NONE DETECTED Ur Tricyclics Screen NONE DETECTED Ur Phencyclidine Scrn NONE DETECTED Ur Amphetamines Screen NONE DETECTED U Methamphetamines Scrn NONE DETECTED U Benzodiazepines Scrn NONE DETECTED Urine Cocaine Screen NONE DETECTED U Cannabinoids Screen PRESUMPTIVE POSITIVE A Orders Category Date Time Status Cardiac Monitoring DIRECTED Care 05/04/19 15:37 Active ED: Urine Bedside ORDERED Care 05/04/19 12:18 Active FSBS [Finger Stick Blood Sugar (ED)] DIRECTED Care 05/04/19 12:25 Completed Misc. NRSG Communication Order DIRECTED Care 05/04/19 14:55 Active Orthostatic Vital Signs NOW Care 05/04/19 12:18 Active Saline Loc NOW Care 05/04/19 12:[address] HEAD W/O CONTRAST [CT] Stat Exams 05/04/19 14:47 Completed CBC WITH ELECTRONIC DIFF [HEME] Stat Lab 05/04/19 12:19 Completed COMPREHENSIVE METABOLIC PANEL [CHEM] Stat Lab 05/04/19 12:19 Completed FREE T4 Stat Lab 05/04/19 12:13 Completed TROPONIN T Stat Lab 05/04/19 12:19 Completed TROPONIN T Stat Lab 05/04/19 15:50 Received TSH Stat Lab 05/04/19 12:13 Completed UA NIMS W/REFLEX CULT [URINALYSIS] Stat Lab 05/04/19 13:11 Completed URINE CULTURE [RM] Routine Lab 05/04/19 14:[address]UG SCREEN [address] Stat Lab 05/04/19 13:11 Completed 0.9% Sodium Chloride Inj [Ns] 1,000 ml Med 05/04/19 12:10 Discontinued IV 999 mls/hr EKG [EKG] Stat Ther 05/04/19 12:12 Ordered EKG [EKG] Stat Ther 05/04/19 14:[address] CORTEZ HAS REVIEWED THIS CURRENT VISIT WELL PREVIOUS VISITS, WE HAVE SPOKEN WITH DR BALLARD REGARDING MONITORING. THERE HAVE BEEN PREVIOUS VISITS WHERE HRS HAVE BEEN WITHIN THE SAME RANGE, AT THIS CURRENT VISIT THE MD RECOMMENDS: ADMIT FOR OBS, DR MONTEIRO PAGED AT 1550 Result Diagrams: 05/04/19 12:19 05/04/19 12:19 - REASSESSMENT Reassessment #1 Time Reassessed: 13:09 (700CC IVF INFUSED, PT REPORTS SHE IS FEELING MUCH BETTER. ASSISTED WALKING TO BATHROOM FOR UA/UDS) Status: improving - EKG 1 Time of EKG reading by physician:: 13:37 EKG Read and Signed by:: Gentry Cortez EKG Interpretation (*Must complete 3 of following elements*): Abnormal Rate: 55 Rhythm: SB [place]: normal QRS: normal [place] Interval: normal ST Wave: non-specific ST changes Prior EKG Comparison: unchanged from prior (OTHER THAN BRADYCARDIA NO CHANGE PER DR. CORTEZ) - CT/MRI 1 CT Study: Head Impression: See EMR Report (EXAM: CT HEAD W/O CONTRAST - 05/04/2019 HISTORY: DIZZINESS TECHNIQUE: CT head without contrast COMPARISON: 07/16/2016 FINDINGS: There is no evidence of intracranial hemorrhage, mass effect, midline shift, or hydrocephalus. There is no evidence of infarct, although acute infarcts may not be immediately visible. There is no evidence of skull fracture. Visualized portions of paranasal sinuses and mastoid air cells appear clear. IMPRESSION: No visible acute intracranial abnormality. No hemorrhage or mass effect. This exam was performed using automated exposure control, adjustment of mA or kV according to patient size, and/or use of iterative reconstruction technique. Electronically signed by Jayce Baez 05/04/2019 3:37 PM 05/04/19 1537 Interpreting Physician: Jayce Baez MD Dictated Date/Time: 05/04/19 1534 cc: Patricia Castillo; None,PCP) - CONSULTS/PCP/HOSPITALIST Notification #1 *Consult/PCP/Hospitalist*: DR. BALLARD Time Discussed: 14:46 Reason/Comments: AGREES WITH 24HR [employer]LE F[employer]ION MIDDLEWARE ARCHITECT Consult Disposition: other (SPOKE WITH ANAIS IN RESP WHO REPORTS PT WILL NEED TO HAVE AN ORDER AND GO THRU ADMISSIONS FOR PLACEMENT OF 24HR CARDAIC MONITOR) #2 Consult: DR MONTEIRO Time Discussed: 15:56 Consult Disposition: Admit Departure - Departure Date of Disposition Decision: 05/04/19 Time of Disposition Decision: 15:55 DIAGNOSIS: Bradycardia, Dizziness Disposition: ADMITTED INPATIENT 09 Certified Medical Emergency: Emergent Condition: Stable Additional Instructions: ED Follow Up Instructions: You have been treated by a care provider in the Emergency Department. These instructions are being provided to you so you can have an understanding of how to care for yourself upon discharge. Upon discharge from the Emergency Department, you are responsible for making arrangements for follow-up care by a physician of your choice. Take all prescribed medications as directed. Return to the Emergency Department immediately for any new or worsening symptoms. You may call the Physician Referral phone number at [phone] to obtain a list of Physicians who are taking new patients. Referrals and Follow-Ups: None,PCP [Primary Care Provider] - - Critical Care Note This patient required my direct & personal management of CC.: No Attestation - Physician/ LUIS Attestation Patient care was provided by Advanced Practice Provider:: Yes Advanced Practice Provider:: Patricia Castillo Advanced Practice Provider documentation review:: The Mid-level provider documentation, treatment plan and medical decision making was reviewed by the physician who agrees with all treatment and medical decision making by the MLP. The physician spent face to face time with patient:: No Advanced Practice Provider documentation review:: Supervising physician onsite and consulted in the evaluation and care of this patient. The physician did not have a face to face encounter with the patient.
[2019-05-04 12:29] LABS: BASO# 0.02 X1000 (0.0-0.2); BASO% 0.2 % (0.0-0.8); EOS# 0.03 X1000 (0.0-0.7); EOS% 0.4 % (0.0-10.0); HEMATOCRIT 41.9 % (37.0-47.0); HEMOGLOBIN 13.6 g/dL (12.0-16.0); LYMPH# 4.15 X1000 (1.2-3.4); LYMPH% 49.3 % (20.5-51.1); MCH 30.2 PG (27-31); MCHC 32.5 g/dL (33-37); MCV 92.9 FL (81-99); MONO# 0.52 X1000 (0.11-0.59); MONO% 6.2 % (1.7-9.3); MPV 9.4 FL (7.4-10.4); NEUT% 43.9 % (42.2-75.2); PLT 285 X1000 (130-400); RBC 4.51 XMIL (4.2-5.4); RDW 13.8 % (11.5-14.5); WBC 8.42 X1000 (4.8-10.8)
[2019-05-04 12:47] LABS: AGAP 10; ALBUMIN 3.6 g/dL (3.5-5.0); ALKALINE PHOSPHATASE 70 U/L (32-104); BUN 7 mg/dL (8-22); CALCIUM 8.4 mg/dL (8.8-10.2); CHLORIDE 107 mmol/L (98-107); COSMO 279; CREATININE 0.7 mg/dL (0.5-0.9); ESTIMATED GFR > 60; GLUCOSE 96 mg/dL (70-104); GOT 13 U/L (10-30); GPT 9 U/L (10-36); POTASSIUM 3.8 mmol/L (3.5-5.1); SODIUM 141 mmol/L (136-145); TCO2 24 mmol/L (25-35); TOTAL PROTEIN 5.9 g/dL (6.3-8.3)
[2019-05-04 13:20] LABS: URINE SOURCE CLEAN CATCH
[2019-05-04 13:48] LABS: BILIRUBIN URINE NEGATIVE (NEGATIVE); BLOOD URINE MODERATE (NEGATIVE); COLOR YELLOW; GLUCOSE URINE NEGATIVE (NEGATIVE); KETONE URINE TRACE mg/dL (NEGATIVE); LEUKOCYTES URINE TRACE (NEGATIVE); NITRITE URINE NEGATIVE (NEGATIVE); PROTEIN URINE 30 mg/dL (NEGATIVE); SP GRAVITY URINE 1.027; TURBIDITY URINE CLEAR (CLEAR); UROBILINOGEN URINE 2 mg/dL (NORMAL)
[2019-05-04 13:50] LABS: UR EPITHELIAL CELLS <10 /HPF (<10); URINE BACTERIA NEGATIVE /HPF; URINE RBC <10 /HPF (<10)
[2019-05-04 14:01] LABS: UR AMPHETAMINES QUAL NONE DETECTED (NONE DETECT); UR BARBITUATES QUAL NONE DETECTED (NONE DETECT); UR BENZODIAZEPIN QUAL NONE DETECTED (NONE DETECT); UR CANNABINOIDS QUAL PRESUMPTIVE POSITIVE (NONE DETECT); UR COCAINE QUAL NONE DETECTED (NONE DETECT); UR METHADONE QUAL NONE DETECTED (NONE DETECT); UR METHAMPHETAMINE QUAL NONE DETECTED (NONE DETECT); UR OPIATES QUAL NONE DETECTED (NONE DETECT); UR OXYCODONE QUAL NONE DETECTED (NONE DETECT); UR PCP QUAL NONE DETECTED (NONE DETECT); UR PROPOXYPHENE QUAL NONE DETECTED (NONE DETECT); UR TCA QUAL NONE DETECTED (NONE DETECT)
[2019-05-04 14:34] LABS: FREE T4 1.56 ng/dL (0.93-1.70); TSH 0.54 uIUmL (0.27-4.20)
--- NOTE | 2019-05-04 15:39 | Diag Imaging Result Doc PS360 ---
EXAM: CT HEAD W/O CONTRAST - 05/04/2019 HISTORY: DIZZINESS TECHNIQUE: CT head without contrast COMPARISON: 07/16/2016 FINDINGS: There is no evidence of intracranial hemorrhage, mass effect, midline shift, or hydrocephalus. There is no evidence of infarct, although acute infarcts may not be immediately visible. There is no evidence of skull fracture. Visualized portions of paranasal sinuses and mastoid air cells appear clear. IMPRESSION: No visible acute intracranial abnormality. No hemorrhage or mass effect. This exam was performed using automated exposure control, adjustment of mA or kV according to patient size, and/or use of iterative reconstruction technique. Electronically signed by Jayce Baez 05/04/2019 3:37 PM
--- NOTE | 2019-05-04 16:36 | ED EKG INTERP ---
This chart was entered by Esther Pradhan Scribe, acting as scribe for Gentry Newman MD. EKG Interpretation - EKG Time of EKG reading by physician:: 15:56 EKG Read and Signed by:: Gentry Newman EKG Interpretation (*Must complete 3 of following elements*): Abnormal Rate: 48 Rhythm: sinus bradycardia [place]: normal DC Interval: normal Comments: cannot rule out anterior infarct, age undetermined Attestation - Physician/ LUIS Attestation Patient care was provided by Advanced Practice Provider:: Yes Advanced Practice Provider:: Patricia Castillo Advanced Practice Provider documentation review:: The Mid-level provider documentation, treatment plan and medical decision making was reviewed by the physician who agrees with all treatment and medical decision making by the P. The physician spent face to face time with patient:: No Advanced Practice Provider documentation review:: Supervising physician onsite and consulted in the evaluation and care of this patient. The physician did not have a face to face encounter with the patient. This chart was documented by the indicated scribe, (Esther Pradhan Scribe) and accurately reflects the services I performed and decisions made by me, Gentry Newman MD, as attested by the provider's signature.
--- NOTE | 2019-05-04 17:23 | EKG Report ---
Test Performed on : 05/04/2019 3:56:39 PM Test Reason : DIZZINESS Blood Pressure : / mmHG Vent. Rate : 048 BPM Atrial Rate : 048 BPM P-R Int : 192 ms QRS Dur : 078 ms QT Int : 418 ms P-R-T Axes : 023 029 -02 degrees QTc Int : 373 ms Sinus bradycardia. Cannot rule out Anterior infarct , age undetermined Abnormal ECG When compared with ECG of 04-MAY-2019 13:37, (Unconfirmed) No significant change was found Unconfirmed Result
--- NOTE | 2019-05-04 17:23 | EKG Report ---
Test Performed on : 05/04/2019 1:37:30 PM Test Reason : CP Blood Pressure : / mmHG Vent. Rate : 055 BPM Atrial Rate : 055 BPM P-R Int : 194 ms QRS Dur : 080 ms QT Int : 420 ms P-R-T Axes : 025 020 -36 degrees QTc Int : 401 ms Sinus bradycardia. T wave abnormality, consider inferior ischemia T wave abnormality, consider anterolateral ischemia Abnormal ECG When compared with ECG of 27-APR-2015 14:29, No significant change was found Unconfirmed Result
[2019-05-04] MEDS ORDERED: ZOFRAN IV PRN (17:39)
[2019-05-04] MEDS: NS 1,000 ML IV SCH ×4 (17:39→22:57)
[2019-05-04] MEDS ORDERED: LOVENOX SUBQ SCH (17:39)
--- NOTE | 2019-05-04 18:07 | Diag Imaging Result Doc PS360 ---
EXAM: CT ANGIOGRM PULMONARY ARTERIES INDICATION: PE TECHNIQUE: This exam was performed using automated exposure control, adjustment of mA or kV according to patient size, and/or use of iterative reconstruction technique. Thin section axial images and 3-D MIPS were obtained. COMPARISON: None. FINDINGS: There is no evidence of pulmonary embolism. There is no evidence of aortic dissection or aneurysm. There are a few mildly prominent right hilar lymph nodes that are showing signs of early calcification suggesting prior granulomatous disease. There is no evidence of significant adenopathy, otherwise. The lungs are clear. There is no pleural fluid collection and no pneumothorax. Limited views of the upper abdomen are essentially unremarkable. IMPRESSION: No evidence of pulmonary embolism or other definite acute pathology. Electronically signed by Crispin Jonas 05/04/2019 6:04 PM
--- NOTE | 2019-05-04 19:09 | Vascular Study Report ---
EXAM: Carotid Ultrasound INDICATION: bradycardic, hypotensive TECHNIQUE: COMPARISON: None. FINDINGS: Right: There is no significant atherosclerotic disease involving the right carotid system on grayscale images. The peak systolic velocity measures 134, 132, 82, 82, 108, 102, and 71 cm/s at the right subclavian artery, CCA, bifurcation, proximal ICA, mid ICA, distal ICA, and ECA, respectively. There is antegrade flow in the vertebral artery. The carotid ratio is 0.8. Left: There is no significant atherosclerotic disease involving the left carotid system on grayscale images. The peak systolic velocity measures 128, 111, 91, 95, 102, 99, and 61 cm/s at the left subclavian artery, CCA, bifurcation, proximal ICA, mid ICA, distal ICA, and ECA, respectively. There is antegrade flow in the vertebral artery. The carotid ratio is 0.9. IMPRESSION: No evidence of hemodynamically significant carotid stenosis by Doppler. Electronically signed by Crispin Jonas 05/04/2019 7:07 PM
--- NOTE | 2019-05-04 21:25 | ECHO REPORT ---
ORDER DATE: 05/04/2019 MEASUREMENTS: 1. Septal thickness 0.8. 2. Left ventricular internal diameter in diastole 5.7. 3. Posterior wall thickness 0.8. 4. Left ventricular internal diameter in systole 3.8. 5. Aortic root 2.8. 6. Left atrium 3. SUMMARY: 1. Adequate quality study. 2. Aortic valve is trileaflet and opens normally on 2-dimensional images. Peak gradient across the aortic valve is less than 10 mmHg. There is trace aortic regurgitation. Mitral, tricuspid, and pulmonic valves are without evidence of structural abnormality with very mild tricuspid regurgitation and mild pulmonic insufficiency. The estimated systolic PA pressure by Doppler is 32 mmHg. Aortic root is normal in size. 3. Normal left ventricular dimensions demonstrated. The estimated left ventricular ejection fraction appears to be at least 55%. No regional wall motion abnormalities are evident. Left atrium, right atrium, right ventricle are normal in size with normal right ventricular systolic function. 4. No pericardial effusion. 5. Appearance of inferior vena cava suggests normal central venous pressure. CONCLUSIONS: 1. Very mild tricuspid regurgitation with estimated systolic PA pressure of 32 mmHg. 2. Normal left ventricular systolic function without wall motion abnormality evident. cc: MD Steven Craft MD
--- NOTE | 2019-05-04 22:04 | HISTORY AND PHYSICAL ---
PRIMARY CARE PROVIDER: No one. CHIEF COMPLAINT: Dizziness. HISTORY OF PRESENT ILLNESS: Ms. Garima Garcia is a 29-year-old female with a medical history of anxiety attacks. 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 Around 2 p.m. she started having some back pain and then she started getting dizzy, lightheaded, feeling like she was going to pass out, felt like her heart rate dropped and started to flutter. Her body became numb, and she felt real clammy. This lasted for at least 20 minutes. Someone drove her over here and was found to have a heart rate in the 40s and mildly low blood pressure. It is noted that today she had donated plasma. She has also had been on her menstrual cycle for about 2 months, but she is not anemic. She does have on and off dizzy spells that usually sitting down resolves it. She is extremely tall. She is 6 feet 2 inches tall. Certainly could match the profile of someone with Marfan's. Her mother does not match that profile, but there is unknown history of the father, so she is being sent for a CTA and echocardiogram and I will transfer her to [facility] at [facility]. PAST MEDICAL HISTORY: Anxiety attack. SURGICAL HISTORY: Salivary gland surgery. She has got scars on her neck. SOCIAL HISTORY: Half pack per day smoker since the age of 19. Denies alcohol. Smokes marijuana. Works at [employer] and has 3 kids. FAMILY HISTORY: Mother had hypertension. Father unknown. ALLERGIES: No known drug allergies. HOME MEDICATIONS: None. REVIEW OF SYSTEMS: Fourteen point review of systems are complete and all were negative except for those mentioned above in HPI. PHYSICAL EXAMINATION: VITAL SIGNS: Temperature 96.3 degrees, heart rate 90, respiratory rate 18, blood pressure was 82/63, 96% on room air. Orthostatic vital signs supine: Heart rate 59, blood pressure 114/51. Sitting: Heart rate 58, blood pressure 111/64. Standing: Heart rate 78, blood pressure 111/70. She is 6 feet 2 inches tall, 215 pounds, BMI is 27.6. GENERAL: Ms. Garima Garcia is a 29-year-old female. She is in no acute distress, able to answer questions appropriately. HEENT: Atraumatic, normocephalic. Pupils equal, round, reactive to light. Extraocular movements intact. Mucous membranes moist. NECK: Trachea midline. CARDIOVASCULAR: S1, S2. Bradycardic rate and rhythm. No rubs, gallops, murmurs. No lower extremity edema. +2 dorsalis and radial pulses. Negative JVD and carotid bruits. PULMONARY: Clear to auscultate bilateral breath sounds. No accessory muscle use or work of breathing noted. GASTROINTESTINAL: Soft, nontender, nondistended. Positive bowel sounds x4. EXTREMITIES: Moves all extremities equally with full range of motion. NEUROLOGICAL: A and O x3. Follows commands. Sensory is intact. SKIN: Warm, dry and intact. LABORATORY DATA: White blood cells 8000, hemoglobin 13, hematocrit 41, platelet count 285,000. Sodium 141, potassium 3.8, BUN 7, creatinine 0.7, glucose 96, calcium 8.4, bilirubin 0.50, AST 13, ALT 9. Troponin less than 0.01. Albumin 3.6. TSH 0.54, free T4 is 1.56. Urinalysis: 30 protein, trace ketones, moderate blood, 2 urobilinogen, trace leukocytes, 10 to 20 white blood cells. Urine drug screen positive for cannabinoids. IMAGING: EKG: Sinus bradycardia, rate 55, QTc 401. Another repeat EKG: Sinus bradycardia, rate 48, QTc 373. Head CT: No acute findings. She has now gone for echocardiogram and a CTA of the chest. ASSESSMENT AND PLAN: 1. Symptomatic bradycardia. Cause is really unknown. She is having an echocardiogram. She is getting a CTA of the lungs or the pulmonary system. She improved with fluids. 2. She could be high risk for Marfan's. She does not know her father's history. She is very tall. Her mother is not. Some of these symptoms mostly seem like they are related to a bradycardic rhythm, but the back pain associated with it, the body numbness is a little unusual, so we will follow up on the CAT scan and echocardiogram. 3. Tobacco abuse. Cessation discussed. 4. Marijuana abuse. Cessation discussed. 5. Anxiety attacks. No home medications for that. She denies that this was an anxiety attack. 6. Deep venous thrombosis prophylaxis. SCDs. Dictated by ROSY Zee for Steven Collins MD Addendum: Patient seen and examined by myself. Agree with ROSY note. It reflects my assessment and plan. Patient is being admitted to hospital for bradycardia and hypotension. ER doctor has consulted with Cardiology and the recommendation was to place her on monitor for one day but because it was late tuesday it was not possible to schedule it. Will admit patient to hospital. Will order CT chest and echo and consult Cardiology. cc: ROSY Zee MD MTDD
[2019-05-04] MEDS ORDERED: TYLENOL PO PRN (22:29)
[2019-05-05] MEDS: NS 1,000 ML IV SCH ×2 (03:08→05:01)
[2019-05-05 05:59] LABS: BASO# 0.03 X1000 (0.0-0.2); BASO% 0.6 % (0.0-0.8); EOS# 0.07 X1000 (0.0-0.7); EOS% 1.3 % (0.0-10.0); HEMOGLOBIN 11.5 g/dL (12.0-16.0); LYMPH# 2.42 X1000 (1.2-3.4); LYMPH% 45.1 % (20.5-51.1); MCHC 31.9 g/dL (33-37); MONO# 0.45 X1000 (0.11-0.59); MONO% 8.4 % (1.7-9.3); NEUT# 2.39 X1000 (1.4-6.5); NEUT% 44.6 % (42.2-75.2); PLT 203 X1000 (130-400); RBC 3.83 XMIL (4.2-5.4); RDW 13.6 % (11.5-14.5); WBC 5.36 X1000 (4.8-10.8)
[2019-05-05 06:27] LABS: AGAP 8; BUN 6 mg/dL (8-22); CALCIUM 7.9 mg/dL (8.8-10.2); CHLORIDE 108 mmol/L (98-107); COSMO 279; CREATININE 0.7 mg/dL (0.5-0.9); ESTIMATED GFR > 60; GLUCOSE 107 mg/dL (70-104); POTASSIUM 3.8 mmol/L (3.5-5.1); SODIUM 141 mmol/L (136-145); TCO2 25 mmol/L (25-35)
[2019-05-05 12:17] VITALS: BP 125/83
--- NOTE | 2019-05-05 19:58 | CONSULTATION ---
DATE OF CONSULTATION: 05/05/2019 IMPRESSION: 1. Sinus bradycardia, probably vagally mediated. 2. Recent episode of near syncope also probably vagally mediated with vasovagal episode. 3. Recent right-sided back discomfort precipitating episodes. Etiology not clear. Consider the possibility of gallbladder disease although she has a normal white blood cell count and has no significant abdominal tenderness. 4. Recent irregular menses. She is on an implanted control medication. RECOMMENDATIONS: 1. Discontinue intravenous fluids. 2. Check serum beta HCG. 3. Follow up urine culture as you are doing. 4. Suspect bradycardia secondary to vagal influences. No further cardiovascular studies or intervention needed. Patient reassured. HISTORY: This 29-year-old female with no prior cardiovascular history was admitted through the emergency room after near syncopal episode. She had sinus bradycardia in the 40 beat per minute range manifest. Cardiology was consulted. She works at [employer] over on the [employer]. She was working the drive through window. She had just eaten 2 pieces of [employer] around noon when she started experiencing a pain in the right posterior lower back. Discomfort was rather persistent and she started to feel ill. She describes feeling some lightheadedness that was accompanied by diaphoresis and feeling flushed. Coworkers noted that she did not look well and 1 employee relations manager suggested that she lie down. She leaned over on the counter for a period but did not feel any better. She was assisted by coworkers to an automobile and brought to the emergency room at [facility]. She relates she did feel some pounding in her chest which was not fast. Her symptoms improved in the emergency room. She was given intravenous fluids. She manifests sinus bradycardia in the 40 to 50 beat per minute range. Blood pressure was stable. She had chest CT scan which was negative. She has already had echocardiography which indicated normal left ventricular ejection fraction. She is generally physically active without exertional symptoms. There is no history of syncope. She has not had any dysuria or frequency. She is on an implanted control medication. She describes irregular menses. She relates going 2 months without a period and then here lately she seems to have a period which is rather persistent. PAST MEDICAL HISTORY: 1. Episodes of anxiety. 2. She has 3 children delivered vaginally and really had no problems carrying her pregnancies to term nor in the delivery. PAST SURGICAL HISTORY: Includes unspecified salivary gland surgery. ALLERGIES: She has no known drug allergies. MEDICATIONS PRIOR TO ADMISSION: As listed. She does have implanted control medication in her left arm. SOCIAL HISTORY: She smokes half-pack of cigarettes per day. She does not use alcohol. She does smoke occasional marijuana. She works at [employer] and has 3 children. FAMILY HISTORY: Negative for premature coronary disease and positive for hypertension. REVIEW OF SYSTEMS: Pulmonary: Negative. Gastrointestinal: Negative for nausea or abdominal pain. Constitutional: Negative. Remainder review of systems negative/noncontributory with 14 total systems reviewed. PHYSICAL EXAMINATION: General: This is a adult -Cymraes female in no distress on room air. Vital signs: Blood pressure 107/69, heart rate 51 with ECG monitor showing sinus bradycardia, oxygen saturation 100% on room air. HEENT: Extraocular movements intact. Mucous membranes are moist. Neck: Supple without jugular venous distention. No carotid bruits. Chest: Clear to auscultation. Cardiac: Reveals a regular rate and rhythm without appreciable murmur or gallop. Abdomen: Soft. Bowel sounds are normal. There is no abdominal tenderness. Extremities: Without edema. Neurologic: Reveals her to be alert and fully oriented. Speech is fluent. She moves all 4 extremities equally well. Skin: Warm, dry. Psych: Reveals her mood to be appropriate. DATA: Twelve lead EKG demonstrates sinus bradycardia and nonspecific T-wave abnormality. Echocardiography indicates normal left ventricular ejection fraction without significant valvular abnormality. Chest CT scan reports no evidence of dissection or pulmonary embolus. LABORATORY DATA: Includes a white blood cell count of 5.36, hematocrit 36.0, hemoglobin 11.5, platelet count 203,000. Sodium 141, potassium 3.8, chloride 108, carbon dioxide 25, BUN 6, creatinine 0.7, glucose 107, initial troponin T less than 0.01, followup troponin T less than 0.01. TSH 0.54, free T4 1.56. Urinalysis with 10 to 20 white cells per high-power field. Urine drug screen positive for cannabinoids. cc: Shashank Tong MD
--- NOTE | 2019-05-06 08:27 | DISCHARGE SUMMARY ---
ADMISSION DATE: 05/04/2019 DISCHARGE DATE: 05/05/2019 DISCHARGE DIAGNOSES: 1. Dizziness with weakness, diaphoresis and numbness. 2. Plasma donations twice in the week. 3. Abnormal uterine bleeding. 4. Active tobacco abuse, cessation counseled. 5. Active marijuana abuse, cessation counseled. CONSULTATIONS DURING HOSPITAL ADMISSION: Dr. Shashank Tong. DISCHARGE MEDICATION: None. VITAL SIGNS: At the time of discharge, temperature 98.1 degrees, pulse 53, respiratory rate 16, blood pressure 125/83, saturating 100% on room air. PHYSICAL EXAMINATION: General: Not in acute distress. HEENT: Pupils are equal, reacting to light bilaterally. No other extraocular abnormalities. Lungs: Air entry bilaterally equal. No wheeze, rhonchi, crackles. Cardiovascular: S1, S2 normal. No murmur or rub. Abdomen: Soft, nontender. Extremity: No lower extremity edema. Neurologic: She is alert and oriented x3. SIGNIFICANT LABS: During hospital admission and discharge, WBC 5.3, hemoglobin 11.5, platelet 203,000. Chloride 108, BUN 6, creatinine 0.7, glucose 107. Serum test negative. TSH 0.5. Urinalysis had mild pyuria and blood, but she was in her menstruation. Urine toxicology was positive for cannabinoids. Microbiology: Urine culture did not have any growth. IMAGING: During hospital admission and discharge, head CT did not have any visible acute intracranial abnormality or mass effect. Echocardiogram had very mild tricuspid regurgitation with systolic PA pressure of 32 mmHg, normal left ventricular systolic function without wall motion abnormality and ejection fraction of 55%. Pulmonary arteriogram on presentation did not have any evidence of pulmonary embolism or any other definitive acute pathology. Carotid Doppler study did not have any evidence of hemodynamically significant carotid stenosis Electrocardiogram on presentation had sinus bradycardia, T-wave abnormality in inferior and anterolateral region. Troponin during this hospital admission was undetectable twice. HOSPITAL COURSE SUMMARY: Ms. Garcia is a 29-year-old lady who presented with chief complaint of dizziness, weakness, diaphoresis and numbness at her workplace. The patient donates plasma very frequently and she states she could donate as much as twice a week. She had one such plasma donation on the day of presentation as well as 48 hours prior to that. She states that after plasma donation, she gets her RBCs back along with normal saline, and she has been doing this since many months, but she never had these symptoms. Apparently, she also has been having ongoing menstrual bleed since almost 6 weeks now, which is moderate in amount and has not stopped. 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 However, in the afternoon time, she suddenly started feeling weak, dizzy and tired, so she had to sit down in the chair. In the chair, she had to lean over because she was feeling too weak and was feeling diaphoretic, so she was brought to the emergency room. In the emergency room, she was found to be bradycardic with heart rate as low as 45 per minute and usually 55 per minute. She was also briefly hypotensive with blood pressure of 82/63. She was resuscitated with intravenous fluids following which her blood pressure had normalized. Though by the time she came to the emergency room, she was asymptomatic. Considering her heart rate was low at about 46 per minute, grease worker team was consulted and she was sent over to [facility] from [place] and was observed overnight. Overnight, she did not have any abnormality. Her echocardiogram, ultrasound, carotids and head CT were unremarkable. It was thought that her symptoms where likely in the setting of plasma donation, ongoing menstrual bleed rather than a primary cardiac event. The patient denied any vision abnormality. She also denied any tick bite or bug bite or recent travel. She denies any vomiting or diarrhea. At the time of discharge, she is tolerating her diet well and is denying any symptoms. It was decided to discharge her. She was provided detailed discharge instructions about coming to the emergency room and also calling cardiology's office if she develops recurrent symptoms. She agreed. More than 30 minutes of time was spent discharging this patient. cc: Alex Sarmiento MD
[2019-05-08 13:02] LABS: LYME DISEASE SCREEN SEE COMMENTS
== END 2019-05-05 13:55 | disposition home or self-care (01) | DRG 310 ==
LOC: P.ED 12:03 → P.EDIPHOLD 17:37 → SUATTDRO 17:37
PROVIDERS: ATTEND Internal Medicine